=== PATIENT | female | born 1945 | race Caucasian/White ===

== ENCOUNTER 2019-07-01 09:22 | Emergency (ER) | payer MEDICARE, MEDICAID ==
[2019-07-01 10:42] VITALS: BP 126/54; PULSE 59
--- NOTE | 2019-07-01 12:07 | EDM.PDOC ---
ED HPI GENERAL MEDICAL PROBLEM - General Chief Complaint: ENT Problem Stated Complaint: DENTAL COMPLAINT Time Seen by Provider: 07/01/19 11:03 Source of Information: Reports: Patient History Limitations: Reports: No Limitations - History of Present Illness INITIAL COMMENTS - FREE TEXT/NARRATIVE: Ms. Fernando is a pleasant 73-year-old woman who states that she was eating a patrick cracker with peanut butter last night, when she developed sensation of breaking her left upper incisor (tooth #9). She denies having any pain. No recent oral drainage or fever. The patient acknowledges that the affected tooth was rotten, but she has not been to a dentist recently. The patient's PCP is Dr. Alin Em. - Related Data Allergies Allergy/AdvReac Type Severity Reaction Status Date / Time acetaminophen Allergy Airway Verified 07/01/19 10:39 Tightness latex Allergy Itching Verified 07/01/19 10:39 Penicillins Allergy Other Verified 07/01/19 10:39 peach AdvReac Diarrhea Verified 07/01/19 10:54 Home Meds: Home Meds Loperamide [Imodium AD] 2 mg PO TID PRN 07/18/15 [History] Metoprolol Succinate [Toprol XL] 50 mg PO DAILY 06/01/17 [History] Gabapentin [Neurontin] 300 mg PO TID 03/22/19 [History] Ascorbate Calcium [Vitamin C] 500 mg PO DAILY 03/23/19 [History] Elderberry Fruit/Honey [Little Remedies Cough-Immune] 1,000 mg PO ACBREAKFAST [History] Losartan [Cozaar] 100 mg PO DAILY 03/23/19 [History] Omeprazole 40 mg PO ACBREAKFAST 03/23/19 [History] Potassium Chloride [Klor-Con 10] 10 meq PO DAILY 03/23/19 [History] Spironolactone [Aldactone] 25 mg PO DAILY 03/23/19 [History] metOLazone [Metolazone] 5 mg PO DAILY 03/23/19 [History] Oxybutynin [Oxybutynin ER] 10 mg PO BID 04/01/19 [History] Rivaroxaban [Xarelto] 20 mg PO DAILY 04/01/19 [History] Insulin Glarg,Human.Rec.Analog [Lantus Solostar] 42 unit SUBCUT BEDTIME #0 05/03 [Rx] Insulin Lispro [Humalog Kwikpen U-100] 10 unit SUBCUT TIDAC #0 05/03/19 [Rx] Nystatin [Nystop] 1 gm TOP TID bottle 05/03/19 [Rx] Petrolatum,White [Aquaphor with Natural Healing] 1 applic TOP Q2D #1 tube [Rx] Past Medical History HEENT History: Reports: Impaired Vision Other HEENT History: wears eyeglasses Cardiovascular History: Reports: Blood Clots/VTE/DVT, High Cholesterol, Hypertension Respiratory History: Reports: PE, Sleep Apnea (nightly CPAP) Gastrointestinal History: Reports: GERD, Hiatal Hernia Genitourinary History: Reports: Urinary Incontinence, Other (See Below) ( Prolapsed bladder) [employer]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 Musculoskeletal History: Reports: Other (See Below) (Left Conley cyst) Neurological History: Reports: Neuropathy, Peripheral Psychiatric History: Reports: Anxiety, Depression Endocrine/Metabolic History: Reports: Diabetes, Type II, Obesity/BMI 30+ Oncologic (Cancer) History: Reports: Cervix Dermatologic History: Reports: Venous Stasis Dermatitis - Infectious Disease History Infectious Disease History: Reports: Chicken Pox, Rheumatic Fever - Past Surgical History HEENT Surgical History: Reports: Oral Surgery (wisdom teeth extraction), Tonsillectomy GI Surgical History: Reports: Appendectomy, Cholecystectomy (1974) Female Surgical History: Reports: Other (See Below) (Uterine polypectomy) Oncologic Surgical History: Reports: Other (See Below) (Parathyroid tumor excision) Dermatological Surgical History: Reports: Other (See Below) (Pilonidal cyst excision) Social & Family History - Family History Family Medical History: Noncontributory HEENT: Reports: None Cardiac: Reports: [place] Psychiatric: Reports: Other (See Below) Other Psychiatric Family History: Alzheimers Oncologic: Reports: Skin - Tobacco Use Smoking Status *Q: Never Smoker - Caffeine Use Caffeine Use: Reports: Tea - Alcohol Use Alcohol Use History: No - Recreational Drug Use Recreational Drug Use: No - Living Situation & Occupation Living situation: Reports: , Extended Care Facility ([facility]) Occupation: Retired ED ROS ENT - Review of Systems Review Of Systems: ROS reveals no pertinent complaints other than HPI. ED EXAM, ENT - Physical Exam Exam: See Below Exam Limited By: No Limitations General Appearance: Alert, WD/WN, No Apparent Distress Eye Exam: Bilateral Eye: EOMI, Normal Inspection Ears: Normal External Exam, Normal Canal, Hearing Grossly Normal, Normal TMs Nose: Normal Inspection, Normal Mucousa, No Blood Mouth/Throat: Normal Inspection, Normal Lips, Other (Only 6 teeth remaining. Tooth #9 with advanced anterior decay, however, the tooth is not visibly fractured. No associated gingival swelling or pointing.) Head: Atraumatic, Normocephalic Neck: Normal Inspection, Supple, Non-Tender, Full Range of Motion. No: Lymphadenopathy (L), Lymphadenopathy (R) Course - Vital Signs Last Recorded V/S: Last Vital Signs Temp 37.2 C 07/01/19 10:39 Pulse 59 L 07/01/19 10:39 Resp 24 H 07/01/19 10:39 BP 126/54 L 07/01/19 10:39 Pulse Ox 94 L 07/01/19 10:39 - Orders/Labs/Meds Meds: Medications Discontinued Medications Generic Name Dose Route Start Last Admin Trade Name Freq PRN Reason Stop Dose Admin Influenza Virus Vaccine 1 each 07/01/19 10:45 07/01/19 12:20 Pharmacy To Dose - Influenza Vaccine IM 07/01/19 10:46 Not Given ONETIME ONE Influenza Virus Vaccine 180 mcg 07/01/19 11:30 07/01/19 12:16 Fluzone High-Dose 2019-20 Syringe IM 07/01/19 11:31 180 mcg .ONCE ONE Administration - Re-Assessments/Exams Free Text/Narrative Re-Assessment/Exam: 07/01/19 12:05 While tooth #9 has advanced decay, especially anteriorly, it does not appear to be fractured. I see no suggestion of infection, therefore I am not recommending antibiotics at this time, however, the patient will be discharged home with a list of local dentists, and I would like the patient to follow-up with a dentist at the next available appointment. In meantime, the patient states that she will drink a liquid diet, although I think a soft diet would be appropriate as well. Departure - Departure Time of Disposition: 12:06 Disposition: Home, Self-Care 01 Condition: Good Clinical Impression: Dental decay - Discharge Information *PRESCRIPTION DRUG MONITORING PROGRAM REVIEWED*: Not Applicable *COPY OF PRESCRIPTION DRUG MONITORING REPORT IN PATIENT BRIAN: Not Applicable Referrals: Alin Em MD [Primary Care Provider] - Forms: ED Department Discharge Additional Instructions: Ms. Fernando was seen in the emergency room over concern of a broken left upper incisor tooth. On examination, while there is considerable decay to the front of the tooth, does not appear to be broken. Ms. Fernando was provided with a list of local dentists. We recommend that she follow-up with a dentist at the next available appointment, for further evaluation and treatment. If any other problems, please do not hesitate to return Ms. Fernando to the ER.
== END 2019-07-01 12:58 | disposition home or self-care (01) ==
LOC: JD.ED 09:22
DX: K02.9 Dental caries, unspecified (principal); I10 Essential (primary) hypertension; E78.00 Pure hypercholesterolemia, unspecified; Z86.718 Personal history of other venous thrombosis and embolism; Z86.711 Personal history of pulmonary embolism; K21.9 Gastro-esophageal reflux disease without esophagitis; E11.42 Type 2 diabetes mellitus with diabetic polyneuropathy; E66.9 Obesity, unspecified; Z68.42 Body mass index [BMI] 45.0-49.9, adult; Z79.01 Long term (current) use of anticoagulants; Z79.4 Long term (current) use of insulin; Z79.899 Other long term (current) drug therapy; Z88.0 Allergy status to penicillin; Z88.6 Allergy status to analgesic agent; Z91.048 Other nonmedicinal substance allergy status; Z91.040 Latex allergy status
CPT/HCPCS: 90662; 99282; G0008; 99281

== ENCOUNTER 2019-08-22 23:34 | Emergency (ER) | payer MEDICARE, MEDICAID ==
[2019-08-22 23:52] VITALS: BP 139/58; PULSE 72
--- NOTE | 2019-08-23 00:13 | EDM.PDOC ---
ED HPI GENERAL MEDICAL PROBLEM - General Chief Complaint: Chest Pain Stated Complaint: [facility] Time Seen by Provider: 08/22/19 23:50 Source of Information: Reports: Patient History Limitations: Reports: No Limitations - History of Present Illness INITIAL COMMENTS - FREE TEXT/NARRATIVE: Ms. Fernando is a very pleasant 73-year-old woman who states that she developed central chest pain radiating up to her mandible, dyspnea, and nausea, while sitting, around 20:30 this evening. She describes the pain as a heavy pressure on her chest. States that it is a pain, not a discomfort. She states that it came on gradually. She denies associated diaphoresis or anxiety. She states that she was given 1 spray of nitroglycerin per the halfway staff at 21:40 , which improved her pain "a little", but that she is still having pain here in the ED. The patient states that she has had similar symptoms, perhaps 10 times over the past 10 years. She states that she was worked up by a Manager Technology in [place], and that she was subsequently prescribed nitroglycerin, however, she denies being told that she has coronary artery disease, and she states that she has never undergone a coronary angiogram. She is on Xarelto for a prior history of a DVT and pulmonary embolus. The patient states that she has headache cough occasionally productive of some yellow sputum over the past 1-2 weeks, but no recent fever or chills. No recent vomiting, constipation, diarrhea, abdominal pain, urinary symptoms, recent weight gain or weight loss, recent bloody bowel movements or black bowel movements, recent joint aches, headaches, or rashes. The patient's PCP is Dr. Alin Em. The patient did receive an influenza vaccine this season. Middle Chest Pain Score (Numeric/FACES): 6 - Related Data Allergies Allergy/AdvReac Type Severity Reaction Status Date / Time acetaminophen Allergy Airway Verified 07/01/19 10:39 Tightness latex Allergy Itching Verified 07/01/19 10:39 Penicillins Allergy Other Verified 07/01/19 10:39 peach AdvReac Diarrhea Verified 07/01/19 10:54 Home Meds: Home Meds Loperamide [Imodium AD] 2 mg PO TID PRN 07/18/15 [History] Metoprolol Succinate [Toprol XL] 50 mg PO DAILY 06/01/17 [History] Gabapentin [Neurontin] 300 mg PO TID 03/22/19 [History] Ascorbate Calcium [Vitamin C] 500 mg PO DAILY 03/23/19 [History] Elderberry Fruit/Honey [Little Remedies Cough-Immune] 10 ml PO ACBREAKFAST 03/23 [History] Losartan [Cozaar] 100 mg PO DAILY 03/23/19 [History] Omeprazole 40 mg PO ACBREAKFAST 03/23/19 [History] Spironolactone [Aldactone] 25 mg PO DAILY 03/23/19 [History] metOLazone [Metolazone] 5 mg PO DAILY 03/23/19 [History] Oxybutynin [Oxybutynin ER] 10 mg PO BID 04/01/19 [History] Rivaroxaban [Xarelto] 20 mg PO DAILY 04/01/19 [History] Petrolatum,White [Aquaphor with Natural Healing] 1 applic TOP Q2D #1 tube [Rx] Clotrimazole/Betamethasone Dip [Lotrisone Cream] 1 dose TP BID PRN 08/23/19 [ History] Insulin Glarg,Human.Rec.Analog [Lantus Solostar] 55 unit SUBCUT BEDTIME [History] Insulin Lispro [Humalog Kwikpen U-100] 12 unit SUBCUT TIDAC 08/23/19 [History] LORazepam [Ativan] 1 mg PO DAILY PRN 08/23/19 [History] Loratadine 10 mg PO DAILY 08/23/19 [History] Magnesium Hydroxide [Milk of Magnesia] 30 ml PO DAILY PRN 08/23/19 [History] Nystatin [Nystop] 1 gm TOP BID PRN 08/23/19 [History] OLANZapine [Olanzapine] 5 mg IM ASDIRECTED PRN 08/23/19 [History] Paliperidone [Invega] 3 mg PO BEDTIME 08/23/19 [History] traMADol [Ultram] 50 mg PO Q6H PRN 08/23/19 [History] Past Medical History HEENT History: Reports: Impaired Vision Other HEENT History: wears eyeglasses Cardiovascular History: Reports: Blood Clots/VTE/DVT, High Cholesterol, Hypertension Respiratory History: Reports: PE, Sleep Apnea (nightly CPAP) Gastrointestinal History: Reports: Diverticulosis, GERD, Hiatal Hernia Genitourinary History: Reports: Urinary Incontinence, Other (See Below) ( Prolapsed bladder) 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 Musculoskeletal History: Reports: Other (See Below) (Left Conley cyst) Neurological History: Reports: Neuropathy, Diabetic Psychiatric History: Reports: Anxiety, Depression Endocrine/Metabolic History: Reports: Diabetes, Type II, Obesity/BMI 30+ Oncologic (Cancer) History: Reports: Cervix Dermatologic History: Reports: Venous Stasis Dermatitis - Infectious Disease History Infectious Disease History: Reports: Chicken Pox, Rheumatic Fever - Past Surgical History HEENT Surgical History: Reports: Oral Surgery (dental extractions), Tonsillectomy GI Surgical History: Reports: Appendectomy, Cholecystectomy (1974) Female Surgical History: Reports: Other (See Below) (Uterine polypectomy) Oncologic Surgical History: Reports: Other (See Below) (Parathyroid tumor excision) Dermatological Surgical History: Reports: Other (See Below) (Pilonidal cyst excision) Social & Family History - Family History Family Medical History: Noncontributory HEENT: Reports: None Cardiac: Reports: [place] Psychiatric: Reports: Other (See Below) Other Psychiatric Family History: Alzheimers Oncologic: Reports: Skin - Tobacco Use Smoking Status *Q: Never Smoker - Caffeine Use Caffeine Use: Reports: Tea - Alcohol Use Alcohol Use History: No - Recreational Drug Use Recreational Drug Use: No - Living Situation & Occupation Living situation: Reports: , Extended Care Facility ([facility]) Occupation: Retired ED ROS GENERAL - Review of Systems Review Of Systems: Comprehensive ROS is negative, except as noted in HPI. ED EXAM, GENERAL - Physical Exam Exam: See Below Exam Limited By: No Limitations General Appearance: Alert, WD/WN, No Apparent Distress Eye Exam: Bilateral Eye: EOMI, Normal Inspection Ears: Normal External Exam, Hearing Grossly Normal Nose: Normal Inspection Throat/Mouth: Normal Inspection, Normal Lips, Normal Voice, No Airway Compromise Head: Atraumatic, Normocephalic Neck: Normal Inspection, Full Range of Motion Respiratory/Chest: No Respiratory Distress, Lungs Clear, Normal Breath Sounds, No Accessory Muscle Use, Other (The patient reports tenderness to palpation of her anterior chest, however, she states that it is a different pain than the pain that brought her to the ED) Cardiovascular: Normal Peripheral Pulses, Regular Rate, Rhythm, No Gallop, No JVD, No Murmur, No Rub Peripheral Pulses: 3+: Radial (L), Radial (R) GI/Abdominal: Normal Bowel Sounds, Soft, Non-Tender, No Organomegaly, No Distention, No Abnormal Bruit, No Mass (Female) Exam: Deferred Rectal (Female) Exam: Deferred Back Exam: Normal Inspection, Full Range of Motion, NT Extremities: Normal Capillary Refill, Other (4+ brawny pretibial edema bilaterally, with hyperpigmentation) Neurological: Alert, Oriented, Normal Cognition, No Motor/Sensory Deficits Psychiatric: Normal Affect Skin Exam: Warm, Dry, Intact, Normal Color, No Rash EKG INTERPRETATION EKG Date: 08/22/19 Time: 23:41 Rhythm: NSR Rate (Beats/Min): 63 [place]: LAD-Left [place] Deviation P-Wave: Present QRS: Other (LVH) ST-T: Normal QT: Normal Comparison: No Change (04/08/2019) Course - Vital Signs Last Recorded V/S: Last Vital Signs Temp 35.7 C 08/22/19 23:49 Pulse 72 08/22/19 23:49 Resp 20 08/22/19 23:49 BP 139/58 L 08/22/19 23:49 Pulse Ox - Orders/Labs/Meds Orders: Active Orders 24 hr Category Date Time Status EKG Documentation Completion [RC] STAT Care 08/22/19 23:50 Active Chest 2V [CR] Stat Exams 08/22/19 23:50 Taken Labs: Laboratory Tests 08/23/19 08/23/19 08/23/19 Range/Units 00:01 00:01 01:13 WBC 14.19 H (3.98-10.04) K/mm3 RBC 3.92 L (3.98-5.22) M/mm3 Hgb 11.0 L (11.2-15.7) gm/dl Hct 36.0 (34.1-44.9) % MCV 91.8 (79.4-94.8) fl MCH 28.1 (25.6-32.2) pg MCHC 30.6 L (32.2-35.5) g/dl RDW Std Deviation 52.0 H (36.4-46.3) fL Plt Count 246 (182-369) K/mm3 MPV 10.9 (9.4-12.3) fl Neut % (Auto) 67.0 (34.0-71.1) % Lymph % (Auto) 24.9 (19.3-51.7) % Cedar % (Auto) 5.1 (4.7-12.5) % Eos % (Auto) 2.0 (0.7-5.8) Baso % (Auto) 0.2 (0.1-1.2) % Neut # (Auto) 9.49 H (1.56-6.13) K/mm3 Lymph # (Auto) 3.54 (1.18-3.74) K/mm3 Cedar # (Auto) 0.73 H (0.24-0.36) K/mm3 Eos # (Auto) 0.29 (0.04-0.36) K/mm3 Baso # (Auto) 0.03 (0.01-0.08) K/mm3 Manual Slide Review Abnormal smear Sodium 138 (136-145) mEq/L Potassium 4.5 (3.5-5.1) mEq/L Chloride 105 (98-107) mEq/L Carbon Dioxide 29 (21-32) mEq/L Anion Gap 8.5 (5-15) BUN 28 H (7-18) mg/dL Creatinine 1.1 H (0.55-1.02) mg/dL Est Cr Clr Drug Dosing 38.24 mL/min Estimated GFR (MDRD) 49 (>60) mL/min BUN/Creatinine Ratio 25.5 H (14-18) Glucose 207 H (83-115) mg/dL Calcium 8.3 L (8.5-10.1) mg/dL Total Bilirubin 0.1 L (0.2-1.0) mg/dL AST 8 L (15-37) U/L ALT 24 (14-59) U/L Alkaline Phosphatase 106 (46-116) U/L Troponin I < 0.017 < 0.017 (0.00-0.056) ng/mL Total Protein 6.9 (6.4-8.2) g/dl Albumin 2.5 L (3.4-5.0) g/dl Globulin 4.4 gm/dL Albumin/Globulin Ratio 0.6 L (1-2) Meds: Medications Discontinued Medications Generic Name Dose Route Start Last Admin Trade Name Freq PRN Reason Stop Dose Admin Aspirin 324 mg 08/23/19 00:19 12 00:24 Aspirin PO 08/23/19 00:20 324 mg ONETIME STA Administration - Re-Assessments/Exams Free Text/Narrative Re-Assessment/Exam: 08/23/19 00:08 The patient's presentation is concerning for a cardiac etiology, however, her ECG shows no ischemic changes, despite her continuing to have chest pain. I have ordered a workup that included blood work and a chest x-ray. If her initial troponin is negative, we will want to repeat it at 00:30 - 4 hours after the onset of her symptoms. 08/23/19 00:20 Received report from Mikal BAIRD that EMS did not give the patient aspirin due to an allergy, however, I do not see aspirin on the patient's allergy list. I asked her about that, and she stated that no, she is not allergic aspirin, but it causes stomach problems, since she has a history of diverticulosis. Clearly, a history of diverticulosis is not a contraindication to aspirin. The patient did not object if I give her aspirin now. 08/23/19 00:53 The patient's CBC is remarkable for a WBC count elevated at 14.19, and a hemoglobin mildly depressed at 11.0, with the remainder of her CBC being unremarkable. Her CMP is remarkable for a BUN/Cr sightly elevated at 28/1.1, and a blood glucose elevated at 207, with the remainder of her CMP being unremarkable. Her initial troponin is undetectably low. The chest x-ray has not yet been obtained. I have ordered a repeat troponin. 08/23/19 01:47 2-view chest radiograph reviewed. The cardiac silhouette is at the upper limits of normal, but there is no pulmonary vascular congestion or pleural effusions to suggest decompensated CHF. No focal infiltrate. No pneumothorax. Formal read per the radiologist pending. The patient's repeat troponin is still undetectably low. With the patient's workup being otherwise unremarkable, I believe she can safely be discharged home, to follow-up with her PCP. Departure - Departure Time of Disposition: 01:51 Disposition: Home, Self-Care 01 Condition: Good Clinical Impression: Chest pain of uncertain etiology, Shortness of breath Referrals: Alin Em MD [Physician] - Forms: ED Department Discharge Additional Instructions: You were seen in the emergency room after developing chest pain, shortness breath, and nausea. Workup in the ER included blood work, a chest x-ray, and an ECG. Your entire workup was unremarkable. You have not suffered a heart attack. The cause of your symptoms is unclear. Further workup may be needed. We recommend that you follow-up with your PCP, Dr. Alin Em, at the next available appointment. If any other problems, please do not hesitate to return to the ER. - My Orders Last 24 Hours: My Active Orders 08/22/19 23:50 EKG Documentation Completion [RC] STAT Chest 2V [CR] Stat - Assessment/Plan Last 24 Hours: My Active Orders 08/22/19 23:50 EKG Documentation Completion [RC] STAT Chest 2V [CR] Stat
[2019-08-23] MEDS ORDERED: Aspirin 81 MG Tab.Chew PO STA (00:19)
--- NOTE | 2019-08-24 09:38 | CR ---
Chest: Two views of the chest were obtained. Comparison: No prior chest x-ray. Heart size and mediastinum are normal. Lungs are clear. Bony structures appear within normal limits for the patient's age. Impression: 1. Nothing acute is identified on two-view chest x-ray. Diagnostic code #1 This report was dictated in [place] Standard Time
== END 2019-08-23 08:05 | disposition home or self-care (01) ==
LOC: JD.ED 23:34
DX: R07.89 Other chest pain (principal); R06.02 Shortness of breath; E78.00 Pure hypercholesterolemia, unspecified; I10 Essential (primary) hypertension; G47.30 Sleep apnea, unspecified; K21.9 Gastro-esophageal reflux disease without esophagitis; E11.40 Type 2 diabetes mellitus with diabetic neuropathy, unspecified; F41.9 Anxiety disorder, unspecified; E66.9 Obesity, unspecified; Z68.43 Body mass index [BMI] 50.0-59.9, adult; Z88.6 Allergy status to analgesic agent; Z88.0 Allergy status to penicillin; Z91.040 Latex allergy status; Z91.018 Allergy to other foods; Z79.01 Long term (current) use of anticoagulants; Z86.718 Personal history of other venous thrombosis and embolism; Z86.711 Personal history of pulmonary embolism; Z79.899 Other long term (current) drug therapy; Z79.4 Long term (current) use of insulin
CPT/HCPCS: 36415; 71046; 80053; 82962; 84484; 85025; 93005; 99285; A9270

== ENCOUNTER 2020-03-06 09:10 | Day surgery (SDC) | payer MEDICARE, MEDICAID ==
[~2020-03-06 09:10] MED LIST: Cefuroxime 10 MG/ML SYRINGE EYERT SCH; Lidocaine 1% PF 2 ML SDV INJECT SCH; Pilocarpine 4% Ophth Soln 15 ML Bot EYERT SCH
[2020-03-06] MEDS: Polymyxin B/Trimethoprim 10 ML Bottle EYERT SCH ×3 (10:20→12:02)
[2020-03-06] MEDS: Brimonidine 0.2% Ophth Soln 5 ML Bottle EYERT SCH ×3 (10:25→12:02)
[2020-03-06] MEDS: Phenylephrine 2.5% Ophth Soln 2 ML Bot EYERT SCH ×5 (10:35→11:42)
[2020-03-06] MEDS: Tropicamide 1% Ophth Soln 15 ML Bottle EYERT SCH ×4 (10:42→11:26)
--- NOTE | 2020-03-06 10:47 | PCM.PREANE ---
Preanesthetic Assessment - Anesthesia/Transfusion/Family Hx Anesthesia History: Prior Anesthesia Without Reaction Other Type of Anesthesia Reaction Comment: difficulty waking up Family History of Anesthesia Reaction: No Transfusion History: No Prior Transfusion(s) - Review of Systems General: Other (schizoaffective disorder, bipolar) Pulmonary: Other (pt complains of post nasal drip) Cardiovascular: No Symptoms Gastrointestinal: Other (gerd, takes meds) Neurological: Other (90% of time in a wheelchair) Other: Reports: Diabetes (bs this am 134) - Physical Assessment NPO Status Date: 03/05/20 NPO Status Time: 17:30 Height: 1.6 m Weight: 138.346 kg ASA Class: 2 Mental Status: Alert & Oriented x3 Airway Class: Mallampati = 2 Dentition: Reports: Edentulous Thyro-Mental Finger Breadths: 3 Mouth Opening Finger Breadths: 3 ROM/Head Extension: Full Lungs: Clear to Auscultation, Normal Respiratory Effort Cardiovascular: Regular Rate, Regular Rhythm - Lab Values: Laboratory Last Values POC Glucose 134 mg/dL (83-110) H 03/06/20 10:17 - Allergies Allergies/Adverse Reactions: Allergies Allergy/AdvReac Type Severity Reaction Status Date / Time acetaminophen Allergy Airway Verified 03/05/20 15:16 Tightness lactose Allergy Cannot Verified 03/05/20 15:16 Remember latex Allergy Itching Verified 03/05/20 15:16 Penicillins Allergy Other Verified 03/05/20 15:16 pineapple Allergy Cannot Verified 03/05/20 15:16 Remember peach AdvReac Diarrhea Verified 03/05/20 15:16 - Blood Blood Available: No Product(s) Available: None - Anesthesia Plan Pre-Op Medication Ordered: None Beta Daniela: Metoprolol Med Last Dose Date: 03/06/20 Med Last Dose Time: 07:00 - Acknowledgements Anesthesia Type Planned: MAC Pt an Appropriate Candidate for the Planned Anesthesia: Yes PreAnesthesia Questionnaire HEENT History: Reports: Impaired Vision Other HEENT History: wears eyeglasses Cardiovascular History: Reports: Blood Clots/VTE/DVT, High Cholesterol, Hypertension Respiratory History: Reports: PE, Sleep Apnea (nightly CPAP) Gastrointestinal History: Reports: Diverticulosis, GERD, Hiatal Hernia Other Gastrointestinal History: Gall bladder removal. umbilical hernia Genitourinary History: Reports: Urinary Incontinence, Other (See Below) ( Prolapsed bladder) Other Genitourinary History: prolapsed bladder. 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 Cellulitis left leg in November and December Neurological History: Reports: Neuropathy, Diabetic Psychiatric History: Reports: Anxiety, Depression Other Psychiatric History: Schizoaffective disorder Endocrine/Metabolic History: Reports: Diabetes, Type II, Obesity/BMI 30+ Hematologic History: Reports: Anticoagulation Therapy Oncologic (Cancer) History: Reports: Cervix Other Oncologic History: cervix and uterus 40 yrs ago Dermatologic History: Reports: Venous Stasis Dermatitis - Infectious Disease History Infectious Disease History: Reports: Chicken Pox, Rheumatic Fever - Past Surgical History HEENT Surgical History: Reports: Oral Surgery (dental extractions), Tonsillectomy GI Surgical History: Reports: Appendectomy, Cholecystectomy (1974) Female Surgical History: Reports: Other (See Below) (Uterine polypectomy) Oncologic Surgical History: Reports: Other (See Below) (Parathyroid tumor excision) Dermatological Surgical History: Reports: Other (See Below) (Pilonidal cyst excision) - HOME MEDS Home Medications: Home Meds Loperamide [Imodium AD] 2 mg PO TID PRN 07/18/15 [History] Metoprolol Succinate [Toprol XL] 50 mg PO DAILY 06/01/17 [History] Gabapentin [Neurontin] 300 mg PO TID 03/22/19 [History] Ascorbate Calcium [Vitamin C] 500 mg PO DAILY 03/23/19 [History] Elderberry Fruit/Honey [Little Remedies Cough-Immune] 10 ml PO ACBREAKFAST 03/23 [History] Losartan [Cozaar] 100 mg PO DAILY 03/23/19 [History] Omeprazole 40 mg PO ACBREAKFAST 03/23/19 [History] Spironolactone [Aldactone] 25 mg PO DAILY 03/23/19 [History] metOLazone [Metolazone] 5 mg PO DAILY 03/23/19 [History] Oxybutynin [Oxybutynin ER] 10 mg PO BID 04/01/19 [History] Rivaroxaban [Xarelto] 20 mg PO DAILY 04/01/19 [History] Petrolatum,White [Aquaphor with Natural Healing] 1 applic TOP Q2D #1 tube [Rx] Clotrimazole/Betamethasone Dip [Lotrisone Cream] 1 dose TP BID PRN 08/23/19 [ History] Insulin Glarg,Human.Rec.Analog [Lantus Solostar] 55 unit SUBCUT BEDTIME [History] Insulin Lispro [Humalog Kwikpen U-100] 12 unit SUBCUT TIDAC 08/23/19 [History] LORazepam [Ativan] 1 mg PO DAILY PRN 08/23/19 [History] Loratadine 10 mg PO DAILY 08/23/19 [History] Magnesium Hydroxide [Milk of Magnesia] 30 ml PO DAILY PRN 08/23/19 [History] Nystatin [Nystop] 1 gm TOP BID PRN 08/23/19 [History] OLANZapine [Olanzapine] 5 mg IM ASDIRECTED PRN 08/23/19 [History] Paliperidone [Invega] 3 mg PO BEDTIME 08/23/19 [History] traMADol [Ultram] 50 mg PO Q6H PRN 08/23/19 [History] - CURRENT (IN HOUSE) MEDS Current Meds: Current Medications Brimonidine Tartrate (Alphagan 0.2% Ophth Soln) 0 ml EYERT ASDIRECTED ADRIANA Stop: 03/06/20 18:00 Last Admin: 03/06/20 10:25 Dose: 1 drop Cefuroxime Sodium (Zinacef) 0 mg EYERT ASDIRECTED ADRIANA Stop: 03/06/20 18:00 Lidocaine HCl (Xylocaine-Mpf 1%) 0 ml INJECT ASDIRECTED ADRIANA Stop: 03/06/20 18:00 Phenylephrine HCl (Mele-Synephrine 2.5% Ophth Soln) 0 ml EYERT ASDIRECTED ADRIANA Stop: 03/06/20 18:00 Last Admin: 03/06/20 10:35 Dose: 1 drop Pilocarpine HCl (Pilocar 4% Ophth Soln) 0 ml EYERT ASDIRECTED ADRIANA Stop: 03/06/20 18:00 Polymyxin/Trimethoprim Sulfate (Polytrim Ophth Soln) 0 ml EYERT ASDIRECTED ADRIANA Stop: 03/06/20 18:00 Last Admin: 03/06/20 10:20 Dose: 1 drop Tetracaine HCl (Tetracaine 0.5% Steri-Unit Joann) 0 ml EYEBOTH ASDIRECTED ADRIANA Stop: 03/06/20 18:00 Tropicamide (Mydriacyl 1% Ophth Soln) 0 ml EYERT ASDIRECTED ADRIANA Stop: 03/06/20 18:00
[2020-03-06] MEDS ORDERED: Lactated Ringers 1,000 ML IV SCH (11:15)
[2020-03-06] MEDS ORDERED: Propofol 200 MG/20 ML SDV ONE (11:22)
[2020-03-06] MEDS ORDERED: Midazolam 1 MG/ML 2 ML SDV ONE ×2 (11:22→11:46)
[2020-03-06] MEDS ORDERED: Ketamine 500 mg/10 ML MDV ONE (11:30)
[2020-03-06] MEDS: Tetracaine HCl/PF 0.5% 4 ML Bottle EYEBOTH SCH ×2 (11:35→11:50)
--- NOTE | 2020-03-06 11:47 | PCM48HPAN ---
Post Anesthesia Note - EVALUATION WITHIN 48HRS OF ANESTHETIC Vital Signs in Normal Range: Yes Patient Participated in Evaluation: Yes Respiratory Function Stable: Yes Airway Patent: Yes Cardiovascular Function Stable: Yes Hydration Status Stable: Yes Pain Control Satisfactory: Yes Nausea and Vomiting Control Satisfactory: Yes Mental Status Recovered: Yes Vital Signs: Last Vital Signs Temp 36.5 C 03/06/20 10:30 Pulse 56 L 03/06/20 10:30 Resp 14 03/06/20 10:30 BP 121/91 H 03/06/20 10:30 Pulse Ox 97 03/06/20 10:30
[2020-03-06] MEDS ORDERED: ePHEDrine Sulfate/0.9% NaCl/Pf 25 MG/5 ML SYRINGE IV ONE (12:32)
[2020-03-06 14:29] VITALS: BP 125/49; PULSE 55
== END 2020-03-06 12:30 | disposition home or self-care (01) ==
LOC: JD.SDS 09:10
PROVIDERS: ATTEND Ophthalmology
DX: E10.36 Type 1 diabetes mellitus with diabetic cataract (principal); H25.813 Combined forms of age-related cataract, bilateral; E10.3293 Type 1 diabetes mellitus with mild nonproliferative diabetic retinopathy without macular edema, bilateral; H16.223 Keratoconjunctivitis sicca, not specified as Sjogren's, bilateral; H16.103 Unspecified superficial keratitis, bilateral; H02.831 Dermatochalasis of right upper eyelid; H02.834 Dermatochalasis of left upper eyelid; I10 Essential (primary) hypertension; E78.00 Pure hypercholesterolemia, unspecified; K21.9 Gastro-esophageal reflux disease without esophagitis; E66.9 Obesity, unspecified; F41.9 Anxiety disorder, unspecified; E10.40 Type 1 diabetes mellitus with diabetic neuropathy, unspecified; F32.9 Major depressive disorder, single episode, unspecified; Z79.4 Long term (current) use of insulin; Z79.899 Other long term (current) drug therapy; Z68.43 Body mass index [BMI] 50.0-59.9, adult; Z88.0 Allergy status to penicillin; Z88.8 Allergy status to other drugs, medicaments and biological substances; Z88.5 Allergy status to narcotic agent; Z91.040 Latex allergy status
CPT/HCPCS: 66984; 82962; C1780; J0697; J2001; J2250; J7120; J0171; J2704

== ENCOUNTER 2020-04-10 07:56 | Day surgery (SDC) | payer MEDICARE, MEDICAID ==
[2020-04-10] MEDS ORDERED: Lactated Ringers 1,000 ML IV SCH (08:15)
--- NOTE | 2020-04-10 08:30 | PCM.PREANE ---
Preanesthetic Assessment - Anesthesia/Transfusion/Family Hx Anesthesia History: Prior Anesthesia Without Reaction Other Type of Anesthesia Reaction Comment: difficulty waking up Family History of Anesthesia Reaction: No Transfusion History: No Prior Transfusion(s) Intubation History: Unknown - Review of Systems General: Chills Pulmonary: No Symptoms Cardiovascular: No Symptoms (HTN), Palpitations (anxiety), Dyspnea on Exertion Gastrointestinal: No Symptoms (GERD), Diarrhea, Difficulty Swallowing Neurological: Tingling (bilateral hands) Other: Reports: Easy Bleeding (On xarelto: history of pulmonary emboli), Easy Bruising, Diabetes (AM blood sugar:174 @ 0826), Depression, Anxiety (History of schizophrenia/bipolar disorder) - Physical Assessment NPO Status Date: 04/09/20 NPO Status Time: 17:30 Vital Signs: HR: 66 B/P: 144/73 Resp: 16 Temp: 97 Sat: 97% Height: 1.6 m Weight: 136.078 kg ASA Class: 3 Mental Status: Alert & Oriented x3 Airway Class: Mallampati = 2 Dentition: Reports: Dentures Thyro-Mental Finger Breadths: 3 Mouth Opening Finger Breadths: 3 ROM/Head Extension: Full Lungs: Clear to Auscultation, Normal Respiratory Effort, Decreased Breath Sounds Cardiovascular: Regular Rate, Regular Rhythm, No Murmurs - Allergies Allergies/Adverse Reactions: Allergies Allergy/AdvReac Type Severity Reaction Status Date / Time acetaminophen Allergy Airway Verified 04/06/20 14:26 Tightness lactose Allergy Cannot Verified 04/06/20 14:26 Remember latex Allergy Itching Verified 04/06/20 14:26 Penicillins Allergy Other Verified 04/06/20 14:26 pineapple Allergy Cannot Verified 04/06/20 14:26 Remember peach AdvReac Diarrhea Verified 04/06/20 14:26 - Anesthesia Plan Pre-Op Medication Ordered: Beta Daniela Beta Daniela: Metoprolol Med Last Dose Date: 04/10/20 Med Last Dose Time: 06:30 - Acknowledgements Anesthesia Type Planned: MAC Pt an Appropriate Candidate for the Planned Anesthesia: Yes Alternatives and Risks of Anesthesia Discussed w Pt/Guardian: Yes Pt/Guardian Understands and Agrees with Anesthesia Plan: Yes PreAnesthesia Questionnaire HEENT History: Reports: Impaired Vision Other HEENT History: wears eyeglasses Cardiovascular History: Reports: Blood Clots/VTE/DVT, High Cholesterol, Hypertension Respiratory History: Reports: PE, Sleep Apnea (nightly CPAP) Gastrointestinal History: Reports: Diverticulosis, GERD, Hiatal Hernia Other Gastrointestinal History: Gall bladder removal. umbilical hernia Genitourinary History: Reports: Urinary Incontinence, Other (See Below) (Prolapsed bladder) Other Genitourinary History: prolapsed bladder. 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 Cellulitis left leg in November and December Neurological History: Reports: Neuropathy, Diabetic Psychiatric History: Reports: Anxiety, Depression Other Psychiatric History: Schizoaffective disorder Endocrine/Metabolic History: Reports: Diabetes, Type II, Obesity/BMI 30+ Hematologic History: Reports: Anticoagulation Therapy Oncologic (Cancer) History: Reports: Cervix Other Oncologic History: cervix and uterus 40 yrs ago Dermatologic History: Reports: Venous Stasis Dermatitis - Infectious Disease History Infectious Disease History: Reports: Chicken Pox, Rheumatic Fever - Past Surgical History HEENT Surgical History: Reports: Oral Surgery (dental extractions), Tonsillectomy GI Surgical History: Reports: Appendectomy, Cholecystectomy (1974) Female Surgical History: Reports: Other (See Below) (Uterine polypectomy) Oncologic Surgical History: Reports: Other (See Below) (Parathyroid tumor excision) Dermatological Surgical History: Reports: Other (See Below) (Pilonidal cyst excision) - HOME MEDS Home Medications: Home Meds Loperamide [Imodium AD] 2 mg PO TID PRN 07/18/15 [History] Metoprolol Succinate [Toprol XL] 50 mg PO DAILY 06/01/17 [History] Gabapentin [Neurontin] 300 mg PO BID 03/22/19 [History] Ascorbate Calcium [Vitamin C] 500 mg PO DAILY 03/23/19 [History] Elderberry Fruit/Honey [Little Remedies Cough-Immune] 10 ml PO ACBREAKFAST 03/23/19 [History] Losartan [Cozaar] 100 mg PO DAILY 03/23/19 [History] Omeprazole 40 mg PO ACBREAKFAST 03/23/19 [History] Spironolactone [Aldactone] 25 mg PO DAILY 03/23/19 [History] metOLazone [Metolazone] 5 mg PO DAILY 03/23/19 [History] Rivaroxaban [Xarelto] 20 mg PO DAILY 04/01/19 [History] Petrolatum,White [Aquaphor with Natural Healing] 1 applic TOP Q2D #1 tube 05/03/19 [Rx] Clotrimazole/Betamethasone Dip [Lotrisone Cream] 1 dose TP BID PRN 08/23/19 [History] Insulin Glarg,Human.Rec.Analog [Lantus Solostar] 65 unit SUBCUT BEDTIME 08/23/19 [History] Insulin Lispro [Humalog Kwikpen U-100] 15 unit SUBCUT TIDAC 08/23/19 [History] LORazepam [Ativan] 1 mg PO DAILY PRN 08/23/19 [History] Loratadine 10 mg PO DAILY 08/23/19 [History] Magnesium Hydroxide [Milk of Magnesia] 30 ml PO DAILY PRN 08/23/19 [History] Nystatin [Nystop] 1 gm TOP BID PRN 08/23/19 [History] OLANZapine [Olanzapine] 5 mg IM ASDIRECTED PRN 08/23/19 [History] Paliperidone [Invega] 3 mg PO BEDTIME 08/23/19 [History] traMADol [Ultram] 50 mg PO Q6H PRN 08/23/19 [History] Gabapentin [Neurontin] 600 mg PO BEDTIME 04/06/20 [History] Sertraline [Zoloft] 25 mg PO DAILY 04/06/20 [History] Topiramate 50 mg PO BID 04/06/20 [History] - CURRENT (IN HOUSE) MEDS Current Meds: Current Medications Brimonidine Tartrate (Alphagan 0.2% Ophth Soln) 0 ml EYELF ASDIRECTED ADRIANA Stop: 04/10/20 18:00 Cefuroxime Sodium (Zinacef) 0 mg EYELF ASDIRECTED ADIRANA Stop: 04/10/20 18:00 Lactated Ringer's (Ringers, Lactated) 1,000 mls @ 125 mls/hr IV ASDIRECTED ADRIANA Stop: 04/10/20 23:00 Lidocaine HCl (Xylocaine-Mpf 1%) 0 ml INJECT ASDIRECTED ADRIANA Stop: 04/10/20 18:00 Phenylephrine HCl (Mele-Synephrine 2.5% Ophth Soln) 0 ml EYELF ASDIRECTED ADRIANA Stop: 04/10/20 18:00 Pilocarpine HCl (Pilocar 4% Ophth Soln) 0 ml EYELF ASDIRECTED ADRIANA Stop: 04/10/20 18:00 Polymyxin/Trimethoprim Sulfate (Polytrim Ophth Soln) 0 ml EYELF ASDIRECTED ADRIANA Stop: 04/10/20 18:00 Tetracaine HCl (Tetracaine 0.5% Steri-Unit Joann) 0 ml EYEBOTH ASDIRECTED ADRIANA Stop: 04/10/20 18:00 Tropicamide (Mydriacyl 1% Ophth Soln) 0 ml EYELF ASDIRECTED ADRIANA Stop: 04/10/20 18:00
[2020-04-10] MEDS: Polymyxin B/Trimethoprim 10 ML Bottle EYELF SCH ×4 (09:03→10:57)
[2020-04-10] MEDS: Brimonidine 0.2% Ophth Soln 5 ML Bottle EYELF SCH ×4 (09:08→10:57)
[2020-04-10] MEDS: Phenylephrine 2.5% Ophth Soln 2 ML Bot EYELF SCH ×5 (09:13→10:35)
[2020-04-10] MEDS: Tropicamide 1% Ophth Soln 15 ML Bottle EYELF SCH ×3 (09:24→09:50)
[2020-04-10] MEDS ORDERED: Midazolam 1 MG/ML 2 ML SDV ONE (10:04)
[2020-04-10] MEDS: Lidocaine 1% PF 2 ML SDV INJECT SCH ×2 (10:10→10:45)
[2020-04-10] MEDS: Tetracaine HCl/PF 0.5% 4 ML Bottle EYEBOTH SCH ×3 (10:11→10:45)
[2020-04-10] MEDS: Cefuroxime 10 MG/ML SYRINGE EYELF SCH ×2 (10:11→10:57)
[2020-04-10] MEDS: Pilocarpine 4% Ophth Soln 15 ML Bot EYELF SCH ×2 (10:11→10:57)
--- NOTE | 2020-04-10 10:57 | PCM48HPAN ---
Post Anesthesia Note - EVALUATION WITHIN 48HRS OF ANESTHETIC Vital Signs in Normal Range: Yes Patient Participated in Evaluation: Yes Respiratory Function Stable: Yes Airway Patent: Yes Cardiovascular Function Stable: Yes Hydration Status Stable: Yes Pain Control Satisfactory: Yes Nausea and Vomiting Control Satisfactory: Yes Mental Status Recovered: Yes Vital Signs: Last Vital Signs Temp 97.2 F 04/10/20 08:00 Pulse 66 04/10/20 08:00 Resp 16 04/10/20 08:00 BP 144/73 H 04/10/20 08:00 Pulse Ox 97 04/10/20 08:00 1100 15 100% with 0xygen 67 93/53
[2020-04-10 11:43] VITALS: BP 116/60; PULSE 64
== END 2020-04-10 11:20 | disposition home or self-care (01) ==
LOC: JD.SDS 07:56
PROVIDERS: ATTEND Ophthalmology
DX: E10.36 Type 1 diabetes mellitus with diabetic cataract (principal); H25.812 Combined forms of age-related cataract, left eye; I10 Essential (primary) hypertension; Z98.41 Cataract extraction status, right eye; Z83.3 Family history of diabetes mellitus
CPT/HCPCS: 66984; 82962; C1780; J0697; J2001; J2250; J7120

== ENCOUNTER 2020-06-04 21:51 | Emergency (ER) | payer MEDICARE, MEDICAID ==
[2020-06-04 22:07] VITALS: BP 122/94; PULSE 74
--- NOTE | 2020-06-04 22:54 | EDM.PDOC ---
ED HPI GENERAL MEDICAL PROBLEM - General Chief Complaint: Chest Pain Stated Complaint: [facility] Time Seen by Provider: 06/04/20 22:22 Source of Information: Reports: Patient History Limitations: Reports: No Limitations - History of Present Illness INITIAL COMMENTS - FREE TEXT/NARRATIVE: Ms. Sow is a very pleasant 74-year-old woman who is now brought to the ED by EMS for left-sided chest, neck, and arm pain. She states that the pain is felt to her upper left chest, and she points with one finger just under her left mid clavicle. She states that it also extends to the left side of her neck, and down her left upper extremity to the elbow. She states that it feels "like I am holding a dumbbell in my chest". The pain will persist for about 1 hour, and recur whenever she is feeling tense or anxious, although she states it is sometimes occurs even if she is not feeling tense or anxious. She states that she has associated mild dyspnea, nausea, and diaphoresis. She has not identified any modifiers. The patient acknowledges that she has had the same pain, progressively worsening in both frequency and severity, for about the past 5 years. She states that she had a prior cardiac evaluation, including a cardiac stress test, but she did not undergo a coronary angiogram. Here in the ED, the patient's initial BP is found to be slightly elevated at 122/94, otherwise, she is hemodynamically stable, afebrile, saturating 92% on room air. Other than her left chest, neck, and upper arm pain, the patient also reports experiencing 4 to 5 months of irregular chest palpitations. She also reports longstanding watery diarrhea. Otherwise, the patient denies having a recent fever, chills, sore throat, ear pain, nasal or sinus congestion, cough, nausea, vomiting, constipation, abdominal pain, urinary symptoms, recent weight gain or weight loss, recent bloody bowel movements or black bowel movements, recent joint aches, headaches, or rashes. The patient's PCP is Dr. Alin Em. Treatments ORDER PLANNER: Reports: Other (see below) Other Treatments ORDER PLANNER: tramadol Left Chest Pain Score (Numeric/FACES): 10 - Related Data Allergies Allergy/AdvReac Type Severity Reaction Status Date / Time acetaminophen Allergy Airway Verified 04/10/20 09:17 Tightness lactose Allergy Cannot Verified 04/10/20 09:17 Remember latex Allergy Itching Verified 04/10/20 09:17 Penicillins Allergy Other Verified 04/10/20 09:17 pineapple Allergy Cannot Verified 04/10/20 09:17 Remember peach AdvReac Diarrhea Verified 04/10/20 09:17 Home Meds: Home Meds Loperamide [Imodium AD] 2 mg PO TID PRN 07/18/15 [History] Metoprolol Succinate [Toprol XL] 50 mg PO DAILY 06/01/17 [History] Gabapentin [Neurontin] 300 mg PO ASDIRECTED 03/22/19 [History] Losartan [Cozaar] 100 mg PO DAILY 03/23/19 [History] Omeprazole 40 mg PO ACBREAKFAST 03/23/19 [History] Spironolactone [Aldactone] 25 mg PO DAILY 03/23/19 [History] metOLazone [Metolazone] 5 mg PO DAILY 03/23/19 [History] Rivaroxaban [Xarelto] 20 mg PO DAILY 04/01/19 [History] Petrolatum,White [Aquaphor with Natural Healing] 1 applic TOP Q2D #1 tube 05/03/19 [Rx] Clotrimazole/Betamethasone Dip [Lotrisone Cream] 1 dose TP BID PRN 08/23/19 [History] Insulin Glarg,Human.Rec.Analog [Lantus Solostar] 65 unit SUBCUT BEDTIME 08/23/19 [History] Insulin Lispro [Humalog Kwikpen U-100] 15 unit SUBCUT TIDAC 08/23/19 [History] Loratadine 10 mg PO DAILY 08/23/19 [History] Magnesium Hydroxide [Milk of Magnesia] 30 ml PO DAILY PRN 08/23/19 [History] Nystatin [Nystop] 1 gm TOP BID PRN 08/23/19 [History] Paliperidone [Invega] 3 mg PO BEDTIME 08/23/19 [History] traMADol [Ultram] 50 mg PO Q6H PRN 08/23/19 [History] Sertraline [Zoloft] 75 mg PO BEDTIME 04/06/20 [History] Benzocaine/Menthol [Cepacol Sore Throat Lozenge] 1 tab PO Q1H PRN 06/04/20 [History] Calcipotriene [Dovonex 0.005% Crm] 1 applic TOP BID 06/04/20 [History] Fluticasone Propionate [Flonase Allergy Relief] 1 applic INH BEDTIME 06/04/20 [History] Hydrocortisone [Hydrocortisone 1% Crm] 1 applic TOP BID PRN 06/04/20 [History] Loperamide [Imodium] 2 mg PO TID PRN 06/04/20 [History] Methyl Salicylate/Menthol [Muscle Rub Cream] 1 applic TOP QID PRN 06/04/20 [History] Paliperidone [Invega] 3 mg PO BEDTIME 06/04/20 [History] Polyvinyl Alcohol/Povidone/Pf [Refresh Classic Eye Drops] 1 drop TOP BID 06/04/20 [History] Sodium Chloride/Aloe Vera [Oxly Saline Nasal Gel [place]] 1 spray INH Q2H PRN 06/04/20 [History] atorvaSTATin [Lipitor] 10 mg PO DAILY 06/04/20 [History] Past Medical History HEENT History: Reports: Impaired Vision (wears glasses) Cardiovascular History: Reports: Blood Clots/VTE/DVT, High Cholesterol, Hypertension, PVD Respiratory History: Reports: PE, Sleep Apnea (non-compliant with CPAP) Gastrointestinal History: Reports: Diverticulosis, GERD, Hiatal Hernia Genitourinary History: Reports: Urinary Incontinence (prolapsed bladder) : 18 Para: 5 Musculoskeletal History: Reports: Other (See Below) (Left [place] cyst) Neurological History: Reports: Neuropathy, Diabetic, Other (See Below) (Essential tremor LUE) Psychiatric History: Reports: Anxiety, Depression, Other (See Below) (Schizo affective disorder) Endocrine/Metabolic History: Reports: Diabetes, Type II, Obesity/BMI 30+ Oncologic (Cancer) History: Reports: Cervix Dermatologic History: Reports: Venous Stasis Dermatitis - Infectious Disease History Infectious Disease History: Reports: Chicken Pox, Influenza, Measles, Mumps, Rheumatic Fever, Other (See Below) (Smallpox) - Past Surgical History HEENT Surgical History: Reports: Oral Surgery (dental extractions), Tonsillect duy Cardiovascular Surgical History: Reports: Other (See Below) (Left femoral artery stent) GI Surgical History: Reports: Appendectomy, Cholecystectomy (1974) Female Surgical History: Reports: Other (See Below) (Uterine polypectomy) Oncologic Surgical History: Reports: Other (See Below) (Parathyroid tumor excision) Dermatological Surgical History: Reports: Other (See Below) (Pilonidal cyst excision) Social & Family History - Family History Family Medical History: Noncontributory HEENT: Reports: None Cardiac: Reports: [place] Psychiatric: Reports: Other (See Below) Other Psychiatric Family History: Alzheimers Oncologic: Reports: Skin - Tobacco Use Smoking Status *Q: Never Smoker - Caffeine Use Caffeine Use: Reports: None - Alcohol Use Alcohol Use History: No - Recreational Drug Use Recreational Drug Use: No - Living Situation & Occupation Living situation: Reports: , Extended Care Facility ([facility]) Occupation: Retired ED ROS GENERAL - Review of Systems Review Of Systems: Comprehensive ROS is negative, except as noted in HPI. ED EXAM, GENERAL - Physical Exam Exam: See Below Exam Limited By: No Limitations General Appearance: Alert, WD/WN, No Apparent Distress Eye Exam: Bilateral Eye: EOMI, Normal Inspection Ears: Normal External Exam, Hearing Grossly Normal Nose: Normal Inspection Throat/Mouth: Normal Inspection, Normal Lips, Normal Voice, No Airway Compromise Head: Atraumatic, Normocephalic Neck: Limited Range of Motion Respiratory/Chest: No Respiratory Distress, Lungs Clear, Normal Breath Sounds, No Accessory Muscle Use, Other (Tenderness to palpation of the left upper chest, however, the patient states that it is not the same chest pain that brings her to the ED tonight) Cardiovascular: Normal Peripheral Pulses, Regular Rate, Rhythm, No Gallop, No JVD, No Murmur, No Rub Peripheral Pulses: 2+: Radial (L), Radial (R) GI/Abdominal: Normal Bowel Sounds, Soft, Non-Tender, No Organomegaly, No Distention, No Abnormal Bruit, No Mass (Female) Exam: Deferred Rectal (Female) Exam: Deferred Back Exam: Normal Inspection, Full Range of Motion, NT Extremities: Normal Range of Motion, Normal Capillary Refill, Other (1+ bilateral pretibial edema with chronic venous stasis changes) Neurological: Alert, Oriented, Normal Cognition, No Motor/Sensory Deficits, Other (Lip smacking and left upper extremity tremor) Psychiatric: Normal Affect Skin Exam: Warm, Dry, Intact, Normal Color, No Rash EKG INTERPRETATION EKG Date: 06/04/20 Time: 21:53 Rhythm: NSR Rate (Beats/Min): 76 [place]: LAD-Left [place] Deviation P-Wave: Present QRS: Other (Incomplete LBBB. LVH. Late transition.) ST-T: Normal QT: Normal Comparison: Change From Previous EKG (Incomplete LBBB new since 08/22/2019) Course - Vital Signs Last Recorded V/S: Last Vital Signs Temp 36.5 C 06/04/20 22:06 Pulse 74 06/04/20 22:06 Resp 12 06/04/20 22:06 BP 122/94 H 06/04/20 22:06 Pulse Ox 92 L 06/04/20 22:06 - Orders/Labs/Meds Orders: Active Orders 24 hr Category Date Time Status EKG Documentation Completion [RC] STAT Care 06/04/20 22:26 Active Chest 1V Frontal [CR] Stat Exams 06/04/20 22:47 Taken Chest 2V [CR] Stat Exams 06/04/20 22:26 Stop Req Labs: Laboratory Tests 06/04/20 06/04/20 06/04/20 Range/Units 22:44 22:44 22:44 WBC 11.92 H (3.98-10.04) K/mm3 RBC 4.25 (3.98-5.22) M/mm3 Hgb 11.8 (11.2-15.7) gm/dl Hct 40.1 (34.1-44.9) % MCV 94.4 (79.4-94.8) fl MCH 27.8 (25.6-32.2) pg MCHC 29.4 L (32.2-35.5) g/dl RDW Std Deviation 56.1 H (36.4-46.3) fL Plt Count 179 L (182-369) K/mm3 MPV 11.9 (9.4-12.3) fl Neutrophils % (Manual) 80 H (40-60) % Band Neutrophils % 0 (0-10) % Lymphocytes % (Manual) 16 L (20-40) % Atypical Lymphs % 0 % Monocytes % (Manual) 4 (2-10) % Eosinophils % (Manual) 0 L (0.7-5.8) % Basophils % (Manual) 0 L (0.1-1.2) Platelet Estimate Adequate Hypochromasia 1+ slight RBC Morph Comment Sodium 139 (136-145) mEq/L Potassium 4.4 (3.5-5.1) mEq/L Chloride 101 (98-107) mEq/L Carbon Dioxide 32 (21-32) mEq/L Anion Gap 10.4 (5-15) BUN 29 H (7-18) mg/dL Creatinine 1.5 H (0.55-1.02) mg/dL Est Cr Clr Drug Dosing 27.63 mL/min Estimated GFR (MDRD) 34 (>60) mL/min BUN/Creatinine Ratio 19.3 H (14-18) Glucose 240 H (83-115) mg/dL Calcium 9.0 (8.5-10.1) mg/dL Magnesium 1.8 (1.8-2.4) mg/dl Total Bilirubin 0.1 L (0.2-1.0) mg/dL AST 15 (15-37) U/L ALT 18 (14-59) U/L Alkaline Phosphatase 103 (46-116) U/L Troponin I < 0.017 (0.00-0.056) ng/mL NT-Pro-B Natriuret Pep 131 H (0-125) pg/mL Total Protein 6.7 (6.4-8.2) g/dl Albumin 2.6 L (3.4-5.0) g/dl Globulin 4.1 gm/dL Albumin/Globulin Ratio 0.6 L (1-2) SARS Virus RNA (PCR) (NEGATIVE) 06/04/20 Range/Units 23:39 WBC (3.98-10.04) K/mm3 RBC (3.98-5.22) M/mm3 Hgb (11.2-15.7) gm/dl Hct (34.1-44.9) % MCV (79.4-94.8) fl MCH (25.6-32.2) pg MCHC (32.2-35.5) g/dl RDW Std Deviation (36.4-46.3) fL Plt Count (182-369) K/mm3 MPV (9.4-12.3) fl Neutrophils % (Manual) (40-60) % Band Neutrophils % (0-10) % Lymphocytes % (Manual) (20-40) % Atypical Lymphs % % Monocytes % (Manual) (2-10) % Eosinophils % (Manual) (0.7-5.8) % Basophils % (Manual) (0.1-1.2) Platelet Estimate Hypochromasia RBC Morph Comment Sodium (136-145) mEq/L Potassium (3.5-5.1) mEq/L Chloride (98-107) mEq/L Carbon Dioxide (21-32) mEq/L Anion Gap (5-15) BUN (7-18) mg/dL Creatinine (0.55-1.02) mg/dL Est Cr Clr Drug Dosing mL/min Estimated GFR (MDRD) (>60) mL/min BUN/Creatinine Ratio (14-18) Glucose (83-115) mg/dL Calcium (8.5-10.1) mg/dL Magnesium (1.8-2.4) mg/dl Total Bilirubin (0.2-1.0) mg/dL AST (15-37) U/L ALT (14-59) U/L Alkaline Phosphatase (46-116) U/L Troponin I (0.00-0.056) ng/mL NT-Pro-B Natriuret Pep (0-125) pg/mL Total Protein (6.4-8.2) g/dl Albumin (3.4-5.0) g/dl Globulin gm/dL Albumin/Globulin Ratio (1-2) SARS Virus RNA (PCR) Negative (NEGATIVE) - Re-Assessments/Exams Free Text/Narrative Re-Assessment/Exam: 06/04/20 22:48 As above, the patient has been experiencing recurrent left-sided chest, neck, and upper arm pain over the past 2 weeks, particularly when she is feeling anxious or tense, but also over the past 5 years with progressively worsening frequency and severity. Her ECG, obtained at triage, does not show any ischemic changes, and since she points to her upper left chest with one finger, I do not have a strong suspicion that this is cardiac in etiology. Nevertheless, I have ordered a work-up that includes blood work, a portable chest x-ray (the patient does not feel that she can stand without assistance), and a test for the SARS-CoV-2 virus. 06/04/20 23:57 Portable chest radiograph reviewed. The cardiac silhouette is within normal limits. No pulmonary vascular congestion. No pleural effusions seen on this AP view. No focal infiltrate. No pneumothorax. The wire from the patient's surgical mask is seen lying transversely across her neck. Formal read per the Radiologist pending. The patient's CBC is remarkable for a WBC count mildly elevated at 11.92, but with 0% bandemia. Her platelets are mildly diminished at 179,000, with the remainder of her CBC being unremarkable. Her CMP is remarkable for a BUN/Cr elevated at 29/1.5, and blood glucose elevated at 240, with the remainder of her CMP being unremarkable. Her magnesium level is within normal limits at 1.8. Her troponin is undetectably low. Her BNP is slightly elevated at 131. Results of the swab for the SARS-CoV-2 virus are still pending. The patient's BUN/Cr was 28/1.1 on . 06/05/20 00:55 The test for the SARS-CoV-2 virus has returned negative. 06/05/20 00:57 Test results discussed with the patient. As above, with the exception of slightly worse renal function, her work-up tonight is unremarkable. I suspect, based on her history and physical examination, that her pain is musculoskeletal in etiology, and I am recommending that she be started on a muscle relaxant, however, given her comorbidities, I believe it would be safer if we were to have her follow-up with her PCP to discuss that as an option. The patient is agreeable. I will discharge her home. Departure - Departure Time of Disposition: 00:58 Disposition: Home, Self-Care 01 Condition: Good Clinical Impression: Musculoskeletal chest pain, Renal insufficiency - Discharge Information *PRESCRIPTION DRUG MONITORING PROGRAM REVIEWED*: Not Applicable *COPY OF PRESCRIPTION DRUG MONITORING REPORT IN PATIENT BRIAN: Not Applicable Referrals: Alin Em MD [Primary Care Provider] - Forms: ED Department Discharge Additional Instructions: You were seen in the emergency room for 2 weeks of intermittent left-sided chest neck, and upper left arm pain, with associated shortness of breath, nausea, and sweatiness. You have experienced these same symptoms on and off over the past 4 to 5 years. Work-up in the ER included blood work, a chest x-ray, an ECG, and a swab for the SARS-CoV-2 virus. Your work-up found that your kidney function is mildly impaired, with a BUN/Cr of 29/1.5. It was 28/1.1 on 08/23/2019. This impairment is likely the result of your diabetes, although there are other causes. The remainder of your work-up was unremarkable. You have not suffered a heart attack. You do not have pneumonia or a collapsed lung. Based on your history, physical exam, and ER tests, the cause of your chest, neck, and arm pain is most likely musculoskeletal. We are recommending that you be started on the muscle relaxant Norflex, however, because of your comorbidities, we recommend that you follow-up with your PCP, Dr. Alin Em, to discuss the pros and cons of this medicine. If any other problems, please do not hesitate to return to the ER. Sepsis Event Note (ED) - Evaluation Sepsis Screening Result: No Definite Risk - Focused Exam Vital Signs: Vital Signs Temp Pulse Resp BP Pulse Ox 06/04/20 22:06 36.5 C 74 12 122/94 H 92 L - My Orders Last 24 Hours: My Active Orders 06/04/20 22:26 EKG Documentation Completion [RC] STAT Chest 2V [CR] Stat 06/04/20 22:47 Chest 1V Frontal [CR] Stat - Assessment/Plan Last 24 Hours: My Active Orders 06/04/20 22:26 EKG Documentation Completion [RC] STAT Chest 2V [CR] Stat 06/04/20 22:47 Chest 1V Frontal [CR] Stat
--- NOTE | 2020-06-05 08:02 | CR ---
Chest: Portable view of the chest was obtained. Comparison: Previous chest x-ray of 08/23/19 is available. Heart size and mediastinum are within normal limits for portable technique. Lungs are clear with no acute parenchymal change. Bony structures are grossly intact. Impression: 1. Nothing acute is appreciated on portable chest x-ray. Diagnostic code #1 This report was dictated in MDT
== END 2020-06-05 02:05 | disposition home or self-care (01) ==
LOC: JD.ED 21:51
DX: R07.89 Other chest pain (principal); N28.9 Disorder of kidney and ureter, unspecified; I10 Essential (primary) hypertension; E11.51 Type 2 diabetes mellitus with diabetic peripheral angiopathy without gangrene; I73.9 Peripheral vascular disease, unspecified; E11.40 Type 2 diabetes mellitus with diabetic neuropathy, unspecified; E66.9 Obesity, unspecified; F41.9 Anxiety disorder, unspecified; F32.9 Major depressive disorder, single episode, unspecified; E78.00 Pure hypercholesterolemia, unspecified; Z20.828 Contact with and (suspected) exposure to other viral communicable diseases; Z68.43 Body mass index [BMI] 50.0-59.9, adult; Z91.040 Latex allergy status; Z88.0 Allergy status to penicillin; Z91.018 Allergy to other foods; Z88.6 Allergy status to analgesic agent; Z79.899 Other long term (current) drug therapy
CPT/HCPCS: 36415; 71045; 71045-26; 80053; 83735; 83880; 84484; 85007; 85027; 93005; 99285-25; U0002